=== PATIENT | male | born 1980 | race Native Hawaiian/Other Pacific Islander ===

== ENCOUNTER 2023-02-13 14:34 | Outpatient (CLI) | payer OTHER | END 2023-02-13 21:56 | disposition home or self-care (01) | LOC: LABW 14:34 | PROVIDERS: ATTEND Podiatrist | DX: B35.1 Tinea unguium (principal) | CPT/HCPCS: 36415; 84450; 84460 ==

== ENCOUNTER 2023-03-26 12:27 | Outpatient (CLI) | payer OTHER | END 2023-03-26 18:49 | disposition home or self-care (01) | LOC: LABW 12:27 | PROVIDERS: ATTEND Podiatrist | DX: B35.1 Tinea unguium (principal) | CPT/HCPCS: 36415; 84450; 84460 ==